=== PATIENT | female | born 1950 | race Caucasian/White ===

== ENCOUNTER → 2016-03-13 | Outpatient (REF) | payer MEDICARE, OTHER ==
[2016-03-13 13:49] LABS: BASOPHILS % (AUTO) 1 % (0-2); EOSINOPHILS # (AUTO) 0.1 10^3uL; EOSINOPHILS % (AUTO) 2 % (0-4); LYMPHOCYTES # (AUTO) 1.3 X10^3; MEAN CORPUSCULAR HEMOGLOBIN 29.7 PG (26.0-34.0); MEAN CORPUSCULAR HGB CONC 34.2 g/dL (31.0-37.0); MEAN CORPUSCULAR VOLUME 87 FL (80-100); MEAN PLATELET VOLUME 10.7 FL (6.0-9.5); MONOCYTES # (AUTO) 0.3 X10^3; MONOCYTES % (AUTO) 6 % (3-11); NEUTROPHILS # (AUTO) 2.5 X10^3; NEUTROPHILS % (AUTO) 59 % (51-67); PLATELET COUNT 167 10^3uL (150-450); WHITE BLOOD COUNT 4.22 10^3uL (4.0-11.0)
[2016-03-13 13:56] LABS: ALBUMIN 4.5 g/dL (3.4-5.0); ANION GAP 15.9 MEQ/L (3-15); CALCULATED IONIZED CALCIUM 4.2 mg/dL (3.8-4.6); TOTAL PROTEIN 7.6 g/dL (6.4-8.5)
[2016-03-13 14:09] LABS: BILIRUBIN,URINE Negative (Negative); CLARITY,URINE Clear; GLUCOSE, URINE (UA) Negative (Negative); LEUKOCYTE ESTERASE ,URINE Negative (Negative); PH,URINE 6.5 (5.0 - 8.0); UROBILINOGEN,URINE 0.2 mg/dL (0.2-1.0)
[2016-03-13 14:33] LABS: COLOR,URINE Dark Yellow; URINE CENTRIFUGED VOLUME 12 mL
[2016-03-13 14:34] LABS: RBC,URINE None Seen /HPF
== END ==
LOC: LAB 13:01
PROVIDERS: ATTEND Family Medicine
DX: R55 Syncope and collapse (principal); I10 Essential (primary) hypertension
CPT/HCPCS: 80053; 81003; 81015; 84443; 85025

== ENCOUNTER → 2016-03-13 | Outpatient (CLI) | payer MEDICARE, OTHER | LOC: RT 12:53 | PROVIDERS: ATTEND Family Medicine | DX: R55 Syncope and collapse (principal) | CPT/HCPCS: 93225 ==

== ENCOUNTER → 2016-03-19 | Outpatient (CLI) | payer MEDICARE, OTHER | LOC: RAD 12:20 | PROVIDERS: ATTEND Family Medicine | DX: R55 Syncope and collapse (principal) | CPT/HCPCS: 93226; 93306; 93880 ==

== ENCOUNTER → 2016-06-20 | Outpatient (REF) | payer MEDICARE, OTHER ==
[2016-06-20 10:45] LABS: BASOPHILS % (AUTO) 1 % (0-2); EOSINOPHILS # (AUTO) 0.1 10^3uL; EOSINOPHILS % (AUTO) 3 % (0-4); LYMPHOCYTES # (AUTO) 1.4 X10^3; MEAN CORPUSCULAR HEMOGLOBIN 29.4 PG (26.0-34.0); MEAN CORPUSCULAR HGB CONC 33.5 g/dL (31.0-37.0); MEAN CORPUSCULAR VOLUME 88 FL (80-100); MEAN PLATELET VOLUME 10.8 FL (6.0-9.5); MONOCYTES # (AUTO) 0.3 X10^3; MONOCYTES % (AUTO) 7 % (3-11); NEUTROPHILS # (AUTO) 2.2 X10^3; NEUTROPHILS % (AUTO) 55 % (51-67); PLATELET COUNT 142 10^3uL (150-450)
[2016-06-20 10:55] LABS: ALBUMIN 4.4 g/dL (3.4-5.0); ANION GAP 17.5 MEQ/L (3-15); CALCULATED IONIZED CALCIUM 4.3 mg/dL (3.8-4.6); TOTAL PROTEIN 7.2 g/dL (6.4-8.5)
== END ==
LOC: LAB 09:30
PROVIDERS: ATTEND Family Medicine
DX: R10.11 Right upper quadrant pain (principal); E11.9 Type 2 diabetes mellitus without complications
CPT/HCPCS: 80053; 82150; 83036; 83690; 85025

== ENCOUNTER → 2016-06-22 | Outpatient (CLI) | payer MEDICARE, OTHER ==
--- NOTE | 2016-06-22 15:28 | Diagnostic Imaging Report ---
PROCEDURE: CT of the abdomen with and without contrast and CT of the pelvis with contrast. TECHNIQUE: Precontrast acquisitions were acquired through the abdomen. Multiple contiguous axial images were obtained through the abdomen and pelvis after administration of intravenous contrast. INDICATION: Generalized abdominal pain. Pelvic pain. History of hysterectomy, cholecystectomy, and inguinal hernia repair. AVAILABLE COMPARISONS: None. FINDINGS: The liver and spleen are negative. Bile ducts are not dilated. The gallbladder is surgically absent. Adrenal glands are within normal limits. The pancreas is within normal limits. The aorta is negative for aneurysm or other lesion. Kidneys are negative for hydronephrosis. A 2 mm nonobstructing stone is seen in the superior pole of the right kidney. A similar stone is seen in the inferior pole of the right kidney. There is no hydronephrosis. Left renal sinus cysts are present. No significant renal mass is identified. Small cyst is present in the lower pole of the right kidney. There is an accessory renal artery off the left common iliac extending to the inferior pole of the left kidney. There are no pathologically enlarged lymph nodes identified. The pelvis demonstrated no pelvic mass or lymphadenopathy. Uterus is surgically absent. Urinary bladder is negative. No bowel wall thickening is identified. Degenerative disc disease is noted at L4-L5 with mild lumbar scoliosis. No ventral hernia is identified. IMPRESSION: 1. Very small nonobstructing right renal calculi. Otherwise negative Dictated by: Dictated on workstation # [id number]
== END ==
LOC: RAD 09:00
PROVIDERS: ATTEND Family Medicine
DX: R10.11 Right upper quadrant pain (principal)
CPT/HCPCS: 74178; Q9967